=== PATIENT | female | born 1970 | race Caucasian/White ===

== ENCOUNTER 2021-10-07 15:18 | Inpatient (IN) | payer SELFPAY ==
[~2021-10-07] VITALS: Ht 170.2 cm; Wt 73.1 kg
[2021-10-07] MEDS ORDERED: FENTANYL CITRATE/PF 100MCG/2 ML INJ IV NR (15:45)
[2021-10-07] MEDS ORDERED: SODIUM CHLORIDE 0.9% 1000ML 1,000 ML IV ONE ×3 (15:45→17:30)
[2021-10-07 15:55] LABS: BASOPHILS % 0.5 % (0.0-1.0); EOSINOPHILS # (AUTO) 0.1 (0.0-0.4); EOSINOPHILS % 0.8 % (0.0-6.0); HEMATOCRIT 45.2 % (34.2-44.1); HEMOGLOBIN 14.6 g/dL (12.0-16.0); LYMPHOCYTES # (AUTO) 1.9 (1.0-3.2); LYMPHOCYTES % 30.7 % (18.0-39.1); MEAN CORPUSCULAR HEMOGLOBIN 32.6 pg (28-32); MEAN CORPUSCULAR HGB CONC 32.3 g/dL (31-35); MEAN CORPUSCULAR VOLUME 100.9 fL (81-99); MONOCYTES # (AUTO) 0.4 (0.2-0.8); MONOCYTES % 5.9 % (4.4-11.3); NEUTROPHILS # (AUTO) 3.9 (2.1-6.9); NEUTROPHILS % 61.9 % (38.7-80.0); PLATELET COUNT 137 x10e3/uL (140-360); RED BLOOD COUNT 4.48 x10e6/uL (3.6-5.1); RED CELL DISTRIBUTION WIDTH 12.8 % (11.7-14.4)
[2021-10-07 16:16] LABS: ALANINE AMINOTRANSFERASE 22 IU/L (0-55); ALBUMIN 3.6 g/dL (3.5-5.0); ALBUMIN/GLOBULIN RATIO 0.9 (0.8-2.0); ALKALINE PHOSPHATASE 108 IU/L (40-150); ANION GAP 20.6 mmol/L (8-16); BLOOD UREA NITROGEN < 5 mg/dL (7-26); CALCIUM 8.7 mg/dL (8.4-10.2); CARBON DIOXIDE 20 mmol/L (22-29); CHLORIDE 97 mmol/L (98-107); CREATININE, SERUM 0.69 mg/dL (0.57-1.11); EST GLOMERULAR FILTRATION RATE 90 ML/MIN (60-); GLUCOSE 181 mg/dL (74-118); POTASSIUM 3.6 mmol/L (3.5-5.1); SODIUM 134 mmol/L (136-145)
[2021-10-07 16:19] LABS: BUN/CREATININE RATIO 7 (6-25)
[2021-10-07] MEDS ORDERED: SODIUM CHLORIDE 0.9% 1000ML 1,000 ML ONE (17:01)
[2021-10-07] MEDS ORDERED: IOPAMIDOL 370 MG/ML 200 ML INFUS..BTL INJ ONE (17:03)
[2021-10-07] MEDS ORDERED: SODIUM CHLORIDE 0.9% 50ML 50 ML ONE (17:03)
[2021-10-07] MEDS ORDERED: LORAZEPAM INJ 2 MG/ML VIAL IV ONE (18:15)
[2021-10-07] MEDS ORDERED: INSULIN REGULAR, HUMAN 100 UNIT/1 ML SQ ONE (18:15)
[2021-10-07] MEDS ORDERED: LORAZEPAM INJ 2 MG/ML VIAL IV PRN (18:15)
[2021-10-07] MEDS: PIPERACILLIN/TAZOBACTAM 3.375 GM in SODIUM CHLORIDE 0.9% 50ML 50 ML IV SCH (18:52)
[2021-10-07 19:03] LABS: CLARITY,URINE HAZY (CLEAR); COLOR,URINE YELLOW (YELLOW); KETONES,URINE 2+ (NEGATIVE); LEUKOCYTE ESTERASE ,URINE NEGATIVE (NEGATIVE); NITRITE,URINE NEGATIVE (NEGATIVE); PROTEIN,URINE DIPSTICK NEGATIVE (NEGATIVE); URINE UROBILINOGEN 0.2 mg/dL (0.2 - 1)
[2021-10-07 19:06] LABS: BACTERIA,URINE MODERATE /HPF; EPITHELIAL CELLS,URINE MODERATE /LPF
[2021-10-07 19:07] LABS: AMORPHOUS SEDIMENT,URINE FEW (FEW)
[2021-10-07] MEDS: ONDANSETRON HCL INJ 2MG/ML 2ML 2 MG/ML VIAL IV PRN (19:17)
[2021-10-07] MEDS: SODIUM CHLORIDE 0.9% 1000ML 1,000 ML IV SCH (19:24)
[2021-10-07 20:48] LABS: ABG PCO2 29 mmHg (35-45); ABG PH 7.44 (7.35-7.45); ABG PO2 44 mmHg (80-105)
[2021-10-07 20:49] LABS: ABG HCO3 20 mmol/L (22-26); ABG TCO2 20
[2021-10-07] MEDS ORDERED: MAGNESIUM/ALUMINUM/SIMETHICONE 30 ML UDC PO PRN (21:45)
[2021-10-07] MEDS ORDERED: HYDRALAZINE HCL 20 MG/ML VIAL IV PRN (22:00)
[2021-10-07] MEDS ORDERED: ACETAMINOPHEN 325 MG TAB PO PRN (22:00)
[2021-10-07 22:35] LABS: AMPHETAMINES SCREEN,URINE NEGATIVE (NEGATIVE); BENZODIAZEPINES SCREEN,URINE NEGATIVE (NEGATIVE); PHENCYCLIDINE SCREEN,URINE NEGATIVE (NEGATIVE)
[2021-10-07 23:37] LABS: SALICYLATE < 5.0 mg/dL (0-30)
[2021-10-07 23:43] VITALS: BP 130/81
[2021-10-07 23:45] VITALS: BP 118/79
[2021-10-07 23:47] LABS: CREATINE KINASE MB 0.1 ng/mL (0-5.0)
[2021-10-07 23:55] LABS: HIV 1&2 AB SCREEN NON-REACTIVE (NONREACTIVE)
[2021-10-08] VITALS (26 sets, daily range): BP systolic 106–135; BP diastolic 56–79
[2021-10-08 00:58] LABS: TRIGLYCERIDES 108 MG/DL (0-149)
[2021-10-08] MEDS: CHLORDIAZEPOXIDE HCL 25 MG CAP PO SCH ×2 (00:59)
[2021-10-08] MEDS ORDERED: HYDRALAZINE HCL 20 MG/ML VIAL IV PRN (01:15)
[2021-10-08] MEDS ORDERED: MELATONIN 5 MG TABLET PO PRN (01:15)
[2021-10-08] MEDS ORDERED: DOCUSATE SODIUM 100 MG CAP PO PRN (01:15)
[2021-10-08] MEDS ORDERED: SIMETHICONE 80 MG CHEW PO PRN (01:15)
[2021-10-08] MEDS ORDERED: TRAMADOL HCL 50 MG TAB PO PRN (01:15)
[2021-10-08] MEDS ORDERED: LIDOCAINE 4% PATCH TP PRN (01:15)
[2021-10-08] MEDS ORDERED: DEXTROSE 50% SYRINGE 50 ML IV PRN (01:15)
[2021-10-08] MEDS ORDERED: DIPHENHYDRAMINE HCL 25 MG CAP PO PRN (01:15)
[2021-10-08] MEDS ORDERED: BENZONATATE 100 MG CAP PO PRN (01:15)
[2021-10-08] MEDS ORDERED: POTASSIUM CHLORIDE 20 MEQ TAB CR PO PRN (01:15)
[2021-10-08] MEDS ORDERED: ALBUTEROL/IPRATROPIUM 3 ML NEB NEB PRN (01:15)
[2021-10-08 01:25] LABS: THYROID STIMULATING HORMONE 1.569 uIU/mL (0.350-4.940)
[2021-10-08] MEDS: PIPERACILLIN/TAZOBACTAM 3.375 GM in SODIUM CHLORIDE 0.9% 50ML 50 ML IV SCH ×3 (02:22→17:36)
[2021-10-08] MEDS: SODIUM CHLORIDE 0.9% 1000ML 1,000 ML IV SCH (03:19)
[2021-10-08 05:46] LABS: ALANINE AMINOTRANSFERASE 15 IU/L (0-55); ALBUMIN 2.8 g/dL (3.5-5.0); ALKALINE PHOSPHATASE 67 IU/L (40-150); AMYLASE 34 U/L (25-125); ANION GAP 13.3 mmol/L (8-16); CALCIUM 7.5 mg/dL (8.4-10.2); CARBON DIOXIDE 21 mmol/L (22-29); CHLORIDE 105 mmol/L (98-107); CREATININE, SERUM 0.58 mg/dL (0.57-1.11); EST GLOMERULAR FILTRATION RATE 110 ML/MIN (60-); GLUCOSE 144 mg/dL (74-118); LIPASE 19 U/L (8-78); POTASSIUM 3.3 mmol/L (3.5-5.1); SODIUM 136 mmol/L (136-145)
[2021-10-08 05:48] LABS: BASOPHILS # (AUTO) 0.1 (0.0-0.1); BASOPHILS % 0.7 % (0.0-1.0); HEMATOCRIT 36.4 % (34.2-44.1); LYMPHOCYTES # (AUTO) 1.5 (1.0-3.2); LYMPHOCYTES % 19.8 % (18.0-39.1); MEAN CORPUSCULAR HEMOGLOBIN 32.8 pg (28-32); MEAN CORPUSCULAR HGB CONC 32.1 g/dL (31-35); MONOCYTES # (AUTO) 0.8 (0.2-0.8); MONOCYTES % 9.9 % (4.4-11.3); NEUTROPHILS # (AUTO) 5.2 (2.1-6.9); NEUTROPHILS % 69.3 % (38.7-80.0); RED BLOOD COUNT 3.57 x10e6/uL (3.6-5.1); RED CELL DISTRIBUTION WIDTH 13.2 % (11.7-14.4)
[2021-10-08 05:50] LABS: BLOOD UREA NITROGEN < 5 mg/dL (7-26); BUN/CREATININE RATIO 9 (6-25)
[2021-10-08 05:52] LABS: HEMOGLOBIN 11.7 g/dL (12.0-16.0); PLATELET COUNT 87 x10e3/uL (140-360)
[2021-10-08 06:06] LABS: CREATINE KINASE MB 0.1 ng/mL (0-5.0)
[2021-10-08 06:20] LABS: MAGNESIUM 1.4 MG/DL (1.3-2.1); PHOSPHORUS 3.1 MG/DL (2.3-4.7)
[2021-10-08 06:40] LABS: THYROID STIMULATING HORMONE 2.54 uIU/mL (0.350-4.940)
[2021-10-08] MEDS: ONDANSETRON HCL INJ 2MG/ML 2ML 2 MG/ML VIAL IV PRN ×4 (07:22→22:35)
[2021-10-08] MEDS: Morphine 4mg Syringe 4 MG/ML INJ IV PRN ×4 (07:22→22:38)
[2021-10-08] MEDS ORDERED: PANTOPRAZOLE SOD 40 MG TABEC PO SCH (07:30)
[2021-10-08] MEDS: MULTIVITAMINS/MINERALS TAB PO SCH ×2 (09:00→10:24)
[2021-10-08] MEDS ORDERED: LACTATED RINGER'S 1,000 ML INJ SCH (09:45)
[2021-10-08] MEDS: THIAMINE HCL INJ 100 MG in SODIUM CHLORIDE 0.9% 50ML 50 ML IV ONE ×2 (10:24→13:13)
[2021-10-08] MEDS ORDERED: THIAMINE HCL INJ 100 MG in SODIUM CHLORIDE 0.9% 50ML 50 ML IV ONE (10:30)
[2021-10-08 15:06] LABS: HEMATOCRIT 35.7 % (34.2-44.1); HEMOGLOBIN 11.6 g/dL (12.0-16.0)
[2021-10-08] MEDS: MULTIVITAMINS- 12 INJECTION 10 ML, FOLIC ACID MDV 1 MG, THIAMINE HCL INJ 100 MG in SODI... IV SCH (15:30)
[2021-10-08] MEDS: ACETAMINOPHEN 325 MG TAB PO PRN (16:33)
[2021-10-08] MEDS: LORAZEPAM INJ 2 MG/ML VIAL IV PRN (17:57)
[2021-10-08] MEDS ORDERED: POTASSIUM CHLORIDE 20MEQ/15ML UDC NG PRN (18:30)
[2021-10-09] VITALS (15 sets, daily range): BP systolic 115–141; BP diastolic 71–92
[2021-10-09] MEDS: LORAZEPAM INJ 2 MG/ML VIAL IV PRN ×2 (01:15→18:33)
[2021-10-09] MEDS: PIPERACILLIN/TAZOBACTAM 3.375 GM in SODIUM CHLORIDE 0.9% 50ML 50 ML IV SCH ×3 (01:30→17:28)
[2021-10-09] MEDS: MULTIVITAMINS- 12 INJECTION 10 ML, FOLIC ACID MDV 1 MG, THIAMINE HCL INJ 100 MG in SODI... IV SCH ×3 (02:15→21:17)
[2021-10-09] MEDS: ACETAMINOPHEN 325 MG TAB PO PRN ×2 (04:35→22:41)
[2021-10-09 05:22] LABS: BASOPHILS # (AUTO) 0.1 (0.0-0.1); BASOPHILS % 0.6 % (0.0-1.0); EOSINOPHILS % 0.5 % (0.0-6.0); HEMATOCRIT 33.9 % (34.2-44.1); HEMOGLOBIN 11.3 g/dL (12.0-16.0); LYMPHOCYTES # (AUTO) 1.4 (1.0-3.2); LYMPHOCYTES % 16.7 % (18.0-39.1); MEAN CORPUSCULAR HEMOGLOBIN 33.1 pg (28-32); MEAN CORPUSCULAR HGB CONC 33.3 g/dL (31-35); MEAN CORPUSCULAR VOLUME 99.4 fL (81-99); MONOCYTES # (AUTO) 0.9 (0.2-0.8); MONOCYTES % 11.5 % (4.4-11.3); NEUTROPHILS # (AUTO) 5.7 (2.1-6.9); NEUTROPHILS % 70.2 % (38.7-80.0); PLATELET COUNT 84 x10e3/uL (140-360); RED BLOOD COUNT 3.41 x10e6/uL (3.6-5.1); RED CELL DISTRIBUTION WIDTH 13.2 % (11.7-14.4)
[2021-10-09 05:57] LABS: ALBUMIN 2.6 g/dL (3.5-5.0); ALBUMIN/GLOBULIN RATIO 0.8 (0.8-2.0); ANION GAP 13.2 mmol/L (8-16); CALCIUM 7.7 mg/dL (8.4-10.2); CREATININE, SERUM 0.58 mg/dL (0.57-1.11); POTASSIUM 3.2 mmol/L (3.5-5.1)
[2021-10-09 06:30] LABS: MAGNESIUM 1.6 MG/DL (1.3-2.1); PHOSPHORUS 2.1 MG/DL (2.3-4.7)
[2021-10-09] MEDS: POTASSIUM CHLORIDE 10MEQ EA PO PRN (06:54)
[2021-10-09] MEDS: CHLORDIAZEPOXIDE HCL 25 MG CAP PO PRN ×2 (08:53→22:40)
[2021-10-09] MEDS: Morphine 4mg Syringe 4 MG/ML INJ IV PRN ×2 (12:51→18:34)
[2021-10-09] MEDS: ONDANSETRON HCL INJ 2MG/ML 2ML 2 MG/ML VIAL IV PRN ×2 (12:51→18:33)
[2021-10-10] VITALS (8 sets, daily range): BP systolic 111–130; BP diastolic 72–87
[2021-10-10] MEDS: PIPERACILLIN/TAZOBACTAM 3.375 GM in SODIUM CHLORIDE 0.9% 50ML 50 ML IV SCH ×2 (02:25→09:50)
[2021-10-10 06:12] LABS: BASOPHILS % 0.3 % (0.0-1.0); EOSINOPHILS # (AUTO) 0.1 (0.0-0.4); EOSINOPHILS % 1.4 % (0.0-6.0); HEMATOCRIT 32.2 % (34.2-44.1); HEMOGLOBIN 10.7 g/dL (12.0-16.0); LYMPHOCYTES # (AUTO) 1.1 (1.0-3.2); LYMPHOCYTES % 17.5 % (18.0-39.1); MEAN CORPUSCULAR HEMOGLOBIN 32.6 pg (28-32); MEAN CORPUSCULAR HGB CONC 33.2 g/dL (31-35); MEAN CORPUSCULAR VOLUME 98.2 fL (81-99); MONOCYTES % 14.8 % (4.4-11.3); NEUTROPHILS # (AUTO) 4.2 (2.1-6.9); NEUTROPHILS % 65.4 % (38.7-80.0); PLATELET COUNT 90 x10e3/uL (140-360); RED BLOOD COUNT 3.28 x10e6/uL (3.6-5.1); RED CELL DISTRIBUTION WIDTH 12.9 % (11.7-14.4)
[2021-10-10] MEDS: MULTIVITAMINS- 12 INJECTION 10 ML, FOLIC ACID MDV 1 MG, THIAMINE HCL INJ 100 MG in SODI... IV SCH ×2 (06:28→16:38)
[2021-10-10 06:32] LABS: ALBUMIN 2.2 g/dL (3.5-5.0); ALBUMIN/GLOBULIN RATIO 0.7 (0.8-2.0); ANION GAP 13.3 mmol/L (8-16); CALCIUM 8.3 mg/dL (8.4-10.2); CREATININE, SERUM 0.51 mg/dL (0.57-1.11); POTASSIUM 3.3 mmol/L (3.5-5.1)
[2021-10-10] MEDS: Morphine 4mg Syringe 4 MG/ML INJ IV PRN (08:40)
[2021-10-10] MEDS: ONDANSETRON HCL INJ 2MG/ML 2ML 2 MG/ML VIAL IV PRN ×2 (08:40→17:45)
[2021-10-10] MEDS: ACETAMINOPHEN 325 MG TAB PO PRN ×2 (12:00→20:29)
[2021-10-10] MEDS: PHOSPHORUS 250 MG TAB PO SCH (12:52)
[2021-10-10] MEDS: METOPROLOL TARTRATE 25 MG TAB PO SCH ×2 (12:52→23:04)
[2021-10-10] MEDS ORDERED: CEFEPIME 1 GM in SODIUM CHLORIDE 0.9% 50ML 50 ML IV SCH (14:00)
[2021-10-10 16:49] LABS: CLARITY,URINE CLEAR (CLEAR); COLOR,URINE YELLOW (YELLOW); KETONES,URINE 2+ (NEGATIVE); LEUKOCYTE ESTERASE ,URINE NEGATIVE (NEGATIVE); NITRITE,URINE NEGATIVE (NEGATIVE); PROTEIN,URINE DIPSTICK NEGATIVE (NEGATIVE)
[2021-10-10 16:50] LABS: EPITHELIAL CELLS,URINE FEW /LPF; URINE UROBILINOGEN >=8 mg/dL (0.2 - 1); WBC,URINE (MAN) 0-5 /HPF (0-5)
[2021-10-10] MEDS: Morphine 2mg Syringe 2 MG/ML SYR IV PRN (17:45)
[2021-10-10] MEDS: CHLORDIAZEPOXIDE HCL 25 MG CAP PO PRN (20:29)
[2021-10-11] VITALS (7 sets, daily range): BP systolic 122–137; BP diastolic 78–88
[2021-10-11] MEDS: MULTIVITAMINS- 12 INJECTION 10 ML, FOLIC ACID MDV 1 MG, THIAMINE HCL INJ 100 MG in SODI... IV SCH ×3 (02:33→22:25)
[2021-10-11 06:10] LABS: BASOPHILS % 0.5 % (0.0-1.0); EOSINOPHILS # (AUTO) 0.1 (0.0-0.4); HEMOGLOBIN 10.8 g/dL (12.0-16.0); LYMPHOCYTES # (AUTO) 1.3 (1.0-3.2); LYMPHOCYTES % 20.9 % (18.0-39.1); MEAN CORPUSCULAR HEMOGLOBIN 32.3 pg (28-32); MEAN CORPUSCULAR HGB CONC 32.7 g/dL (31-35); MEAN CORPUSCULAR VOLUME 98.8 fL (81-99); MONOCYTES # (AUTO) 0.9 (0.2-0.8); MONOCYTES % 14.9 % (4.4-11.3); NEUTROPHILS # (AUTO) 3.7 (2.1-6.9); NEUTROPHILS % 61.2 % (38.7-80.0); PLATELET COUNT 113 x10e3/uL (140-360); RED BLOOD COUNT 3.34 x10e6/uL (3.6-5.1)
[2021-10-11 06:40] LABS: ALANINE AMINOTRANSFERASE 28 IU/L (0-55); ALBUMIN 2.2 g/dL (3.5-5.0); ALBUMIN/GLOBULIN RATIO 0.7 (0.8-2.0); ALKALINE PHOSPHATASE 83 IU/L (40-150); ANION GAP 10.9 mmol/L (8-16); BLOOD UREA NITROGEN < 5 mg/dL (7-26); CALCIUM 7.6 mg/dL (8.4-10.2); CARBON DIOXIDE 21 mmol/L (22-29); CHLORIDE 105 mmol/L (98-107); CREATININE, SERUM 0.48 mg/dL (0.57-1.11); EST GLOMERULAR FILTRATION RATE 136 ML/MIN (60-); GLUCOSE 110 mg/dL (74-118); MAGNESIUM 1.7 MG/DL (1.3-2.1); PHOSPHORUS 2.7 MG/DL (2.3-4.7); SODIUM 134 mmol/L (136-145)
[2021-10-11 06:48] LABS: BUN/CREATININE RATIO 10 (6-25)
[2021-10-11 06:49] LABS: POTASSIUM 2.9 mmol/L (3.5-5.1)
[2021-10-11] MEDS: PHOSPHORUS 250 MG TAB PO SCH (09:38)
[2021-10-11] MEDS: METOPROLOL TARTRATE 25 MG TAB PO SCH ×2 (09:38→22:25)
[2021-10-11] MEDS: Morphine 2mg Syringe 2 MG/ML SYR IV PRN ×4 (09:48→22:26)
[2021-10-11 13:21] LABS: INR 1.24; PROTHROMBIN TIME 16.6 seconds (11.9-14.5)
[2021-10-11] MEDS ORDERED: POTASSIUM CHLORIDE 20 MEQ TAB CR PO ONE (14:15)
[2021-10-11] MEDS ORDERED: ALBUMIN 25% 12.5GM 50ML 0 ML IV ONE (15:04)
[2021-10-11] MEDS: CEFTRIAXONE 1 GM in SODIUM CHLORIDE 0.9% 50ML 50 ML IV SCH (16:09)
[2021-10-12] VITALS: BP 121/77
[2021-10-12] MEDS: Morphine 2mg Syringe 2 MG/ML SYR IV PRN ×3 (02:14→11:30)
[2021-10-12 02:46] LABS: BODY FLUID APPEARANCE CLOUDY; BODY FLUID COLOR YELLOW; BODY FLUID TYPE PERITONEAL; RBC,BODY FLUID 400 cells/uL; WBC,BODY FLUID 10316 cells/uL
[2021-10-12 03:05] LABS: LYMPHOCYTES,BODY FLUID 13 %; MONO/MACROPHG,BODY FLUID 10 %; NEUTROPHILS,BODY FLUID 77 %
[2021-10-12 04:00] VITALS: BP 125/75
[2021-10-12 06:05] LABS: BASOPHILS # (AUTO) 0.1 (0.0-0.1); BASOPHILS % 0.8 % (0.0-1.0); EOSINOPHILS # (AUTO) 0.1 (0.0-0.4); EOSINOPHILS % 0.8 % (0.0-6.0); HEMATOCRIT 38.8 % (34.2-44.1); HEMOGLOBIN 12.1 g/dL (12.0-16.0); LYMPHOCYTES # (AUTO) 1.8 (1.0-3.2); LYMPHOCYTES % 17.3 % (18.0-39.1); MEAN CORPUSCULAR HEMOGLOBIN 32.4 pg (28-32); MEAN CORPUSCULAR HGB CONC 31.2 g/dL (31-35); MONOCYTES # (AUTO) 1.2 (0.2-0.8); MONOCYTES % 11.3 % (4.4-11.3); NEUTROPHILS # (AUTO) 7.2 (2.1-6.9); NEUTROPHILS % 69.1 % (38.7-80.0); PLATELET COUNT 104 x10e3/uL (140-360); RED BLOOD COUNT 3.73 x10e6/uL (3.6-5.1); RED CELL DISTRIBUTION WIDTH 13.4 % (11.7-14.4)
[2021-10-12 06:54] LABS: ANION GAP 17.1 mmol/L (8-16); BLOOD UREA NITROGEN < 5 mg/dL (7-26); CALCIUM 8.1 mg/dL (8.4-10.2); CARBON DIOXIDE 18 mmol/L (22-29); CHLORIDE 103 mmol/L (98-107); CREATININE, SERUM 0.47 mg/dL (0.57-1.11); EST GLOMERULAR FILTRATION RATE 140 ML/MIN (60-); GLUCOSE 107 mg/dL (74-118); POTASSIUM 3.1 mmol/L (3.5-5.1); SODIUM 135 mmol/L (136-145)
[2021-10-12 06:57] LABS: BUN/CREATININE RATIO 11 (6-25)
[2021-10-12] MEDS: FUROSEMIDE 40 MG TAB PO SCH (09:15)
[2021-10-12] MEDS: SPIRONOLACTONE 25 MG TAB PO SCH (09:15)
[2021-10-12] MEDS: PHOSPHORUS 250 MG TAB PO SCH (09:15)
[2021-10-12] MEDS: MULTIVITAMINS- 12 INJECTION 10 ML, FOLIC ACID MDV 1 MG, THIAMINE HCL INJ 100 MG in SODI... IV SCH ×2 (09:16→20:12)
[2021-10-12] MEDS: METOPROLOL TARTRATE 25 MG TAB PO SCH ×2 (09:17→20:12)
[2021-10-12 12:32] VITALS: BP 118/76
[2021-10-12 15:48] VITALS: BP 123/82
[2021-10-12] MEDS: TRAMADOL HCL 50 MG TAB PO PRN (16:10)
[2021-10-12] MEDS: CEFTRIAXONE 1 GM in SODIUM CHLORIDE 0.9% 50ML 50 ML IV SCH (16:14)
[2021-10-12] MEDS: LORAZEPAM INJ 2 MG/ML VIAL IV PRN (16:14)
[2021-10-12 20:00] VITALS: BP 122/83
[2021-10-13] VITALS (8 sets, daily range): BP systolic 117–125; BP diastolic 74–84
[2021-10-13] MEDS: MULTIVITAMINS- 12 INJECTION 10 ML, FOLIC ACID MDV 1 MG, THIAMINE HCL INJ 100 MG in SODI... IV SCH ×2 (03:07→10:39)
[2021-10-13] MEDS: TRAMADOL HCL 50 MG TAB PO PRN ×5 (04:33→23:57)
[2021-10-13] MEDS: ONDANSETRON HCL INJ 2MG/ML 2ML 2 MG/ML VIAL IV PRN (05:00)
[2021-10-13] MEDS: PHOSPHORUS 250 MG TAB PO SCH (10:39)
[2021-10-13] MEDS: SPIRONOLACTONE 25 MG TAB PO SCH (10:39)
[2021-10-13] MEDS: FUROSEMIDE 40 MG TAB PO SCH (10:39)
[2021-10-13] MEDS: METOPROLOL TARTRATE 25 MG TAB PO SCH ×2 (10:40→20:55)
[2021-10-13] MEDS: CEFTRIAXONE 1 GM in SODIUM CHLORIDE 0.9% 50ML 50 ML IV SCH (15:47)
[2021-10-13] MEDS: LORAZEPAM INJ 2 MG/ML VIAL IV PRN (15:48)
[2021-10-14] VITALS (8 sets, daily range): BP systolic 113–123; BP diastolic 75–83
[2021-10-14] MEDS ORDERED: SPIRONOLACTONE 25 MG TAB PO STA (00:09)
[2021-10-14] MEDS ORDERED: FUROSEMIDE 40 MG TAB PO STA (00:09)
[2021-10-14] MEDS: FUROSEMIDE 40 MG TAB PO SCH ×2 (05:56→16:48)
[2021-10-14] MEDS: TRAMADOL HCL 50 MG TAB PO PRN ×3 (06:05→18:01)
[2021-10-14 07:00] LABS: ALANINE AMINOTRANSFERASE 36 IU/L (0-55); ALBUMIN/GLOBULIN RATIO 0.6 (0.8-2.0); ALKALINE PHOSPHATASE 112 IU/L (40-150); BLOOD UREA NITROGEN < 5 mg/dL (7-26); CALCIUM 7.5 mg/dL (8.4-10.2); CARBON DIOXIDE 24 mmol/L (22-29); CHLORIDE 98 mmol/L (98-107); CREATININE, SERUM 0.53 mg/dL (0.57-1.11); EST GLOMERULAR FILTRATION RATE 122 ML/MIN (60-); GLUCOSE 99 mg/dL (74-118); SODIUM 133 mmol/L (136-145)
[2021-10-14 07:02] LABS: BUN/CREATININE RATIO 9 (6-25)
[2021-10-14 07:58] LABS: BASOPHILS # (AUTO) 0.1 (0.0-0.1); BASOPHILS % 0.4 % (0.0-1.0); EOSINOPHILS # (AUTO) 0.1 (0.0-0.4); EOSINOPHILS % 1.3 % (0.0-6.0); HEMATOCRIT 35.2 % (34.2-44.1); LYMPHOCYTES # (AUTO) 2.4 (1.0-3.2); LYMPHOCYTES % 21.9 % (18.0-39.1); MEAN CORPUSCULAR HEMOGLOBIN 31.4 pg (28-32); MEAN CORPUSCULAR HGB CONC 32.1 g/dL (31-35); MEAN CORPUSCULAR VOLUME 97.8 fL (81-99); MONOCYTES # (AUTO) 0.9 (0.2-0.8); MONOCYTES % 8.3 % (4.4-11.3); NEUTROPHILS # (AUTO) 7.5 (2.1-6.9); NEUTROPHILS % 67.4 % (38.7-80.0); RED CELL DISTRIBUTION WIDTH 13.3 % (11.7-14.4)
[2021-10-14 08:02] LABS: HEMOGLOBIN 11.3 g/dL (12.0-16.0); PLATELET COUNT 220 x10e3/uL (140-360)
[2021-10-14] MEDS: POTASSIUM CHLORIDE 10MEQ EA PO PRN (09:16)
[2021-10-14] MEDS: SPIRONOLACTONE 25 MG TAB PO SCH ×2 (09:17→16:48)
[2021-10-14] MEDS: METOPROLOL TARTRATE 25 MG TAB PO SCH ×2 (09:17→20:33)
[2021-10-14] MEDS: MULTIVITAMINS/MINERALS TAB PO SCH (09:17)
[2021-10-14] MEDS: PHOSPHORUS 250 MG TAB PO SCH (09:17)
[2021-10-14] MEDS: THIAMINE HCL INJ 100 MG/ML 2ML VIAL IV SCH (09:18)
[2021-10-14 12:22] LABS: BAND NEUTROPHILS % (MANUAL) 1 %; EOSINOPHILS % (MANUAL) 1 % (0-7); LYMPHOCYTES % (MANUAL) 16 % (19-48); MONOCYTES % (MANUAL) 8 % (3.4-9.0); NEUTROPHILS % (MANUAL) 74 % (40-74); PLATELET ESTIMATE ADEQUATE; PLATELET MORPHOLOGY COMMENT NORMAL; RBC MORPHOLOGY COMMENT NORMAL
[2021-10-14] MEDS: CEFTRIAXONE 1 GM in SODIUM CHLORIDE 0.9% 50ML 50 ML IV SCH (16:48)
[2021-10-15] VITALS (8 sets, daily range): BP systolic 106–132; BP diastolic 71–89
[2021-10-15] MEDS: TRAMADOL HCL 50 MG TAB PO PRN ×3 (00:37→17:00)
[2021-10-15] MEDS ORDERED: POTASSIUM CHLORIDE 20 MEQ TAB CR PO STA (02:15)
[2021-10-15] MEDS ORDERED: POTASSIUM CHLORIDE 20 MEQ TAB CR PO ONE (03:30)
[2021-10-15] MEDS: DICYCLOMINE HCL 10 MG CAP PO SCH ×3 (05:32→16:59)
[2021-10-15] MEDS: FUROSEMIDE 40 MG TAB PO SCH ×2 (05:32→16:59)
[2021-10-15 05:38] LABS: BASOPHILS # (AUTO) 0.1 (0.0-0.1); BASOPHILS % 0.5 % (0.0-1.0); EOSINOPHILS # (AUTO) 0.1 (0.0-0.4); EOSINOPHILS % 1.2 % (0.0-6.0); HEMATOCRIT 33.3 % (34.2-44.1); HEMOGLOBIN 10.8 g/dL (12.0-16.0); LYMPHOCYTES # (AUTO) 2.2 (1.0-3.2); LYMPHOCYTES % 19.9 % (18.0-39.1); MEAN CORPUSCULAR HEMOGLOBIN 31.9 pg (28-32); MEAN CORPUSCULAR HGB CONC 32.4 g/dL (31-35); MEAN CORPUSCULAR VOLUME 98.2 fL (81-99); MONOCYTES # (AUTO) 0.8 (0.2-0.8); MONOCYTES % 7.5 % (4.4-11.3); NEUTROPHILS # (AUTO) 7.8 (2.1-6.9); NEUTROPHILS % 70.3 % (38.7-80.0); PLATELET COUNT 233 x10e3/uL (140-360); RED BLOOD COUNT 3.39 x10e6/uL (3.6-5.1); RED CELL DISTRIBUTION WIDTH 13.3 % (11.7-14.4)
[2021-10-15 06:00] LABS: ALANINE AMINOTRANSFERASE 36 IU/L (0-55); ALBUMIN/GLOBULIN RATIO 0.5 (0.8-2.0); ALKALINE PHOSPHATASE 119 IU/L (40-150); ANION GAP 14.4 mmol/L (8-16); BLOOD UREA NITROGEN < 5 mg/dL (7-26); CALCIUM 7.7 mg/dL (8.4-10.2); CARBON DIOXIDE 26 mmol/L (22-29); CHLORIDE 95 mmol/L (98-107); CREATININE, SERUM 0.51 mg/dL (0.57-1.11); EST GLOMERULAR FILTRATION RATE 127 ML/MIN (60-); GLUCOSE 95 mg/dL (74-118); POTASSIUM 3.4 mmol/L (3.5-5.1); SODIUM 132 mmol/L (136-145)
[2021-10-15 06:08] LABS: BUN/CREATININE RATIO 10 (6-25)
[2021-10-15] MEDS: ACETAMINOPHEN 325 MG TAB PO PRN (08:36)
[2021-10-15] MEDS: POTASSIUM CHLORIDE 10MEQ EA PO PRN (08:36)
[2021-10-15] MEDS: SPIRONOLACTONE 25 MG TAB PO SCH ×2 (08:37→16:59)
[2021-10-15] MEDS: MULTIVITAMINS/MINERALS TAB PO SCH (08:37)
[2021-10-15] MEDS: METOPROLOL TARTRATE 25 MG TAB PO SCH ×2 (08:37→21:00)
[2021-10-15] MEDS: THIAMINE HCL INJ 100 MG/ML 2ML VIAL IV SCH (10:27)
[2021-10-15] MEDS: CEFTRIAXONE 1 GM in SODIUM CHLORIDE 0.9% 50ML 50 ML IV SCH (16:57)
[2021-10-16] VITALS (8 sets, daily range): BP systolic 114–124; BP diastolic 71–89
[2021-10-16] MEDS: TRAMADOL HCL 50 MG TAB PO PRN ×3 (03:52→17:32)
[2021-10-16] MEDS ORDERED: POTASSIUM CHLORIDE 10MEQ EA PO STA (04:21)
[2021-10-16] MEDS: POTASSIUM CHLORIDE 10MEQ EA PO PRN (04:38)
[2021-10-16 06:04] LABS: BASOPHILS # (AUTO) 0.1 (0.0-0.1); BASOPHILS % 0.6 % (0.0-1.0); EOSINOPHILS # (AUTO) 0.1 (0.0-0.4); EOSINOPHILS % 1.1 % (0.0-6.0); HEMATOCRIT 34.4 % (34.2-44.1); HEMOGLOBIN 11.1 g/dL (12.0-16.0); LYMPHOCYTES # (AUTO) 1.9 (1.0-3.2); LYMPHOCYTES % 17.5 % (18.0-39.1); MEAN CORPUSCULAR HEMOGLOBIN 31.9 pg (28-32); MEAN CORPUSCULAR HGB CONC 32.3 g/dL (31-35); MEAN CORPUSCULAR VOLUME 98.9 fL (81-99); MONOCYTES # (AUTO) 0.8 (0.2-0.8); MONOCYTES % 7.6 % (4.4-11.3); NEUTROPHILS # (AUTO) 7.8 (2.1-6.9); NEUTROPHILS % 72.4 % (38.7-80.0); PLATELET COUNT 178 x10e3/uL (140-360); RED BLOOD COUNT 3.48 x10e6/uL (3.6-5.1); RED CELL DISTRIBUTION WIDTH 13.5 % (11.7-14.4)
[2021-10-16 06:22] LABS: ANION GAP 15.5 mmol/L (8-16); BLOOD UREA NITROGEN < 5 mg/dL (7-26); CALCIUM 7.7 mg/dL (8.4-10.2); CARBON DIOXIDE 22 mmol/L (22-29); CHLORIDE 97 mmol/L (98-107); CREATININE, SERUM 0.48 mg/dL (0.57-1.11); EST GLOMERULAR FILTRATION RATE 136 ML/MIN (60-); GLUCOSE 107 mg/dL (74-118); POTASSIUM 3.5 mmol/L (3.5-5.1); SODIUM 131 mmol/L (136-145)
[2021-10-16 06:23] LABS: BUN/CREATININE RATIO 10 (6-25)
[2021-10-16] MEDS: FUROSEMIDE 40 MG TAB PO SCH ×2 (07:18→17:31)
[2021-10-16] MEDS: DICYCLOMINE HCL 10 MG CAP PO SCH ×4 (07:18→17:31)
[2021-10-16] MEDS: SPIRONOLACTONE 25 MG TAB PO SCH ×2 (08:25→17:31)
[2021-10-16] MEDS: METOPROLOL TARTRATE 25 MG TAB PO SCH ×2 (08:25→21:12)
[2021-10-16] MEDS: MULTIVITAMINS/MINERALS TAB PO SCH (08:26)
[2021-10-16] MEDS: THIAMINE HCL INJ 100 MG/ML 2ML VIAL IV SCH (08:48)
[2021-10-16 12:22] LABS: BODY FLUID APPEARANCE SL.CLOUDY; BODY FLUID COLOR YELLOW; BODY FLUID TYPE PERITONEAL
[2021-10-16 12:23] LABS: RBC,BODY FLUID 2000 cells/uL; WBC,BODY FLUID 6968 cells/uL
[2021-10-16 12:51] LABS: LYMPHOCYTES,BODY FLUID 22 %; MONO/MACROPHG,BODY FLUID 14 %; NEUTROPHILS,BODY FLUID 64 %
[2021-10-16] MEDS ORDERED: SODIUM CHLORIDE 0.9% 50ML 50 ML ONE (17:22)
[2021-10-16] MEDS: CEFTRIAXONE 1 GM in SODIUM CHLORIDE 0.9% 50ML 50 ML IV SCH (17:31)
[2021-10-17] VITALS (9 sets, daily range): BP systolic 108–126; BP diastolic 76–88
[2021-10-17 05:20] LABS: BASOPHILS # (AUTO) 0.1 (0.0-0.1); BASOPHILS % 0.4 % (0.0-1.0); EOSINOPHILS # (AUTO) 0.2 (0.0-0.4); EOSINOPHILS % 1.3 % (0.0-6.0); HEMATOCRIT 32.3 % (34.2-44.1); HEMOGLOBIN 10.5 g/dL (12.0-16.0); LYMPHOCYTES # (AUTO) 2.2 (1.0-3.2); LYMPHOCYTES % 19.6 % (18.0-39.1); MEAN CORPUSCULAR HEMOGLOBIN 31.6 pg (28-32); MEAN CORPUSCULAR HGB CONC 32.5 g/dL (31-35); MEAN CORPUSCULAR VOLUME 97.3 fL (81-99); MONOCYTES # (AUTO) 0.9 (0.2-0.8); MONOCYTES % 7.5 % (4.4-11.3); NEUTROPHILS % 70.6 % (38.7-80.0); PLATELET COUNT 297 x10e3/uL (140-360); RED BLOOD COUNT 3.32 x10e6/uL (3.6-5.1); RED CELL DISTRIBUTION WIDTH 13.6 % (11.7-14.4)
[2021-10-17] MEDS: DICYCLOMINE HCL 10 MG CAP PO SCH ×4 (05:37→18:03)
[2021-10-17] MEDS: FUROSEMIDE 40 MG TAB PO SCH ×2 (05:37→18:03)
[2021-10-17 05:55] LABS: ALANINE AMINOTRANSFERASE 31 IU/L (0-55); ALBUMIN 1.9 g/dL (3.5-5.0); ALBUMIN/GLOBULIN RATIO 0.5 (0.8-2.0); ALKALINE PHOSPHATASE 119 IU/L (40-150); ANION GAP 13.3 mmol/L (8-16); BLOOD UREA NITROGEN < 5 mg/dL (7-26); CALCIUM 7.7 mg/dL (8.4-10.2); CARBON DIOXIDE 26 mmol/L (22-29); CHLORIDE 97 mmol/L (98-107); CREATININE, SERUM 0.46 mg/dL (0.57-1.11); EST GLOMERULAR FILTRATION RATE 143 ML/MIN (60-); GLUCOSE 101 mg/dL (74-118); POTASSIUM 3.3 mmol/L (3.5-5.1); SODIUM 133 mmol/L (136-145)
[2021-10-17 06:00] LABS: BUN/CREATININE RATIO 11 (6-25)
[2021-10-17] MEDS: TRAMADOL HCL 50 MG TAB PO PRN ×5 (06:00→18:04)
[2021-10-17] MEDS: MULTIVITAMINS/MINERALS TAB PO SCH (08:23)
[2021-10-17] MEDS: SPIRONOLACTONE 25 MG TAB PO SCH ×2 (08:23→18:03)
[2021-10-17] MEDS: POTASSIUM CHLORIDE 10MEQ EA PO PRN (08:24)
[2021-10-17] MEDS: METOPROLOL TARTRATE 25 MG TAB PO SCH ×2 (08:24→20:20)
[2021-10-17] MEDS: THIAMINE HCL INJ 100 MG/ML 2ML VIAL IV SCH (08:24)
[2021-10-17] MEDS: PIPERACILLIN/TAZOBACTAM 3.375 GM in SODIUM CHLORIDE 0.9% 50ML 50 ML IV SCH (18:03)
[2021-10-17] MEDS ORDERED: ONDANSETRON HCL 4 MG ORAL DISINTEGRATING TAB SL PRN (19:00)
[2021-10-18] VITALS (7 sets, daily range): BP systolic 108–123; BP diastolic 72–82
[2021-10-18] MEDS: PIPERACILLIN/TAZOBACTAM 3.375 GM in SODIUM CHLORIDE 0.9% 50ML 50 ML IV SCH ×4 (00:05→17:47)
[2021-10-18] MEDS: TRAMADOL HCL 50 MG TAB PO PRN ×4 (00:05→18:42)
[2021-10-18] MEDS: DICYCLOMINE HCL 10 MG CAP PO SCH ×4 (00:05→17:47)
[2021-10-18] MEDS ORDERED: SODIUM CHLORIDE 0.9% 250ML 250 ML ONE (00:10)
[2021-10-18] MEDS ORDERED: POTASSIUM CHLORIDE 20 MEQ TAB CR PO STA (00:44)
[2021-10-18] MEDS ORDERED: POTASSIUM CHLORIDE 20 MEQ TAB CR PO ONE (02:00)
[2021-10-18] MEDS ORDERED: SODIUM CHLORIDE 0.9% 50ML 50 ML ONE (04:49)
[2021-10-18] MEDS ORDERED: IOPAMIDOL 370 MG/ML 200 ML INFUS..BTL INJ ONE (04:49)
[2021-10-18 05:37] LABS: BASOPHILS % 0.4 % (0.0-1.0); EOSINOPHILS # (AUTO) 0.1 (0.0-0.4); EOSINOPHILS % 0.9 % (0.0-6.0); HEMATOCRIT 35.9 % (34.2-44.1); HEMOGLOBIN 11.3 g/dL (12.0-16.0); LYMPHOCYTES # (AUTO) 2.1 (1.0-3.2); LYMPHOCYTES % 18.3 % (18.0-39.1); MEAN CORPUSCULAR HEMOGLOBIN 31.1 pg (28-32); MEAN CORPUSCULAR HGB CONC 31.5 g/dL (31-35); MEAN CORPUSCULAR VOLUME 98.9 fL (81-99); MONOCYTES # (AUTO) 0.9 (0.2-0.8); MONOCYTES % 7.9 % (4.4-11.3); NEUTROPHILS # (AUTO) 8.2 (2.1-6.9); NEUTROPHILS % 72.1 % (38.7-80.0); PLATELET COUNT 379 x10e3/uL (140-360); RED BLOOD COUNT 3.63 x10e6/uL (3.6-5.1); RED CELL DISTRIBUTION WIDTH 13.8 % (11.7-14.4)
[2021-10-18 05:50] LABS: ALANINE AMINOTRANSFERASE 35 IU/L (0-55); ALBUMIN 2.1 g/dL (3.5-5.0); ALBUMIN/GLOBULIN RATIO 0.5 (0.8-2.0); ALKALINE PHOSPHATASE 127 IU/L (40-150); BLOOD UREA NITROGEN < 5 mg/dL (7-26); CALCIUM 8.1 mg/dL (8.4-10.2); CARBON DIOXIDE 26 mmol/L (22-29); CHLORIDE 93 mmol/L (98-107); EST GLOMERULAR FILTRATION RATE 130 ML/MIN (60-); GLUCOSE 97 mg/dL (74-118); SODIUM 131 mmol/L (136-145)
[2021-10-18] MEDS: FUROSEMIDE 40 MG TAB PO SCH ×2 (05:55→17:47)
[2021-10-18 05:59] LABS: BUN/CREATININE RATIO 10 (6-25)
[2021-10-18] MEDS: THIAMINE HCL INJ 100 MG/ML 2ML VIAL IV SCH (09:12)
[2021-10-18] MEDS: SPIRONOLACTONE 25 MG TAB PO SCH ×2 (09:12→17:44)
[2021-10-18] MEDS: METOPROLOL TARTRATE 25 MG TAB PO SCH ×2 (09:13→21:30)
[2021-10-18] MEDS: MULTIVITAMINS/MINERALS TAB PO SCH (09:13)
[2021-10-18] MEDS ORDERED: MAGNESIUM HYDROXIDE 30 ML UDC PO ONE (17:00)
[2021-10-18] MEDS: ENOXAPARIN SOD INJ 40 MG/0.4 ML SYR SC SCH (18:29)
[2021-10-18] MEDS: ACETAMINOPHEN 325 MG TAB PO PRN (21:45)
[2021-10-19] VITALS (8 sets, daily range): BP systolic 109–125; BP diastolic 69–75
[2021-10-19] MEDS: DICYCLOMINE HCL 10 MG CAP PO SCH ×4 (00:30→17:31)
[2021-10-19] MEDS: PIPERACILLIN/TAZOBACTAM 3.375 GM in SODIUM CHLORIDE 0.9% 50ML 50 ML IV SCH ×5 (00:55→23:50)
[2021-10-19 05:59] LABS: BASOPHILS % 0.3 % (0.0-1.0); EOSINOPHILS # (AUTO) 0.1 (0.0-0.4); EOSINOPHILS % 1.2 % (0.0-6.0); HEMATOCRIT 30.9 % (34.2-44.1); HEMOGLOBIN 10.1 g/dL (12.0-16.0); LYMPHOCYTES # (AUTO) 1.5 (1.0-3.2); LYMPHOCYTES % 12.5 % (18.0-39.1); MEAN CORPUSCULAR HEMOGLOBIN 31.3 pg (28-32); MEAN CORPUSCULAR HGB CONC 32.7 g/dL (31-35); MEAN CORPUSCULAR VOLUME 95.7 fL (81-99); MONOCYTES % 8.5 % (4.4-11.3); NEUTROPHILS # (AUTO) 9.2 (2.1-6.9); NEUTROPHILS % 76.8 % (38.7-80.0); PLATELET COUNT 319 x10e3/uL (140-360); RED BLOOD COUNT 3.23 x10e6/uL (3.6-5.1); RED CELL DISTRIBUTION WIDTH 13.7 % (11.7-14.4)
[2021-10-19] MEDS: FUROSEMIDE 40 MG TAB PO SCH ×2 (06:10→17:31)
[2021-10-19 06:29] LABS: ANION GAP 16.6 mmol/L (8-16); BLOOD UREA NITROGEN < 5 mg/dL (7-26); CARBON DIOXIDE 24 mmol/L (22-29); CHLORIDE 94 mmol/L (98-107); CREATININE, SERUM 0.49 mg/dL (0.57-1.11); EST GLOMERULAR FILTRATION RATE 133 ML/MIN (60-); GLUCOSE 99 mg/dL (74-118); POTASSIUM 3.6 mmol/L (3.5-5.1); SODIUM 131 mmol/L (136-145)
[2021-10-19 06:33] LABS: BUN/CREATININE RATIO 10 (6-25)
[2021-10-19] MEDS: SPIRONOLACTONE 25 MG TAB PO SCH ×2 (09:35→17:31)
[2021-10-19] MEDS: METOPROLOL TARTRATE 25 MG TAB PO SCH ×2 (09:35→21:50)
[2021-10-19] MEDS: THIAMINE HCL INJ 100 MG/ML 2ML VIAL IV SCH (09:35)
[2021-10-19] MEDS: MULTIVITAMINS/MINERALS TAB PO SCH (09:36)
[2021-10-19] MEDS ORDERED: CITRATE OF MAGNESIA 300ML BOTTLE PO ONE (10:00)
[2021-10-19] MEDS: TRAMADOL HCL 50 MG TAB PO PRN ×3 (10:07→23:59)
[2021-10-19] MEDS: METRONIDAZOLE 500 MG TAB PO SCH ×3 (13:27→23:50)
[2021-10-19] MEDS: NEOMYCIN SULFATE 500 MG TAB PO SCH ×3 (13:28→23:50)
[2021-10-19] MEDS: ENOXAPARIN SOD INJ 40 MG/0.4 ML SYR SC SCH (17:31)
[2021-10-19] MEDS: ACETAMINOPHEN 325 MG TAB PO PRN (21:50)
[2021-10-20] VITALS (8 sets, daily range): BP systolic 105–126; BP diastolic 70–88
[2021-10-20] MEDS: DICYCLOMINE HCL 10 MG CAP PO SCH ×4 (00:54→16:24)
[2021-10-20] MEDS: FUROSEMIDE 40 MG TAB PO SCH ×2 (06:00→16:24)
[2021-10-20] MEDS: PIPERACILLIN/TAZOBACTAM 3.375 GM in SODIUM CHLORIDE 0.9% 50ML 50 ML IV SCH ×3 (06:46→16:23)
[2021-10-20] MEDS: THIAMINE HCL INJ 100 MG/ML 2ML VIAL IV SCH (08:33)
[2021-10-20] MEDS: SPIRONOLACTONE 25 MG TAB PO SCH ×2 (08:33→16:23)
[2021-10-20] MEDS: METOPROLOL TARTRATE 25 MG TAB PO SCH ×3 (08:34→21:10)
[2021-10-20] MEDS: MULTIVITAMINS/MINERALS TAB PO SCH (09:00)
[2021-10-20] MEDS ORDERED: HYDROMORPHONE 1MG/1ML INJ ONE (11:57)
[2021-10-20] MEDS ORDERED: BUPIVACAINE HCL 0.5% INJ 30 ML VIAL INJ ONE (12:10)
[2021-10-20] MEDS ORDERED: PIPERACILLIN/TAZOBACTAM 3.375 GM VIAL ONE (12:42)
[2021-10-20] MEDS ORDERED: SODIUM CHLORIDE 0.9% 50ML 50 ML ONE (12:42)
[2021-10-20] MEDS ORDERED: LIDOCAINE HCL 2% LOCAL INJ 5 ML SDV VIAL INJ ONE (13:01)
[2021-10-20] MEDS ORDERED: ONDANSETRON HCL INJ 2MG/ML 2ML 2 MG/ML VIAL ONE ×2 (13:01→14:24)
[2021-10-20] MEDS ORDERED: DEXAMETHASONE SOD PHOS INJ 4 MG/ML SDV ONE (13:01)
[2021-10-20] MEDS ORDERED: ROCURONIUM BROMIDE 10 MG/ML 5ML VIAL IV ONE (13:01)
[2021-10-20] MEDS ORDERED: SEVOFLURANE INHAL SOLN 250 ML PEN BTL ONE (13:01)
[2021-10-20] MEDS ORDERED: PROPOFOL IV EMULSION 10 MG/ML 20 ML VIAL ONE (13:01)
[2021-10-20] MEDS ORDERED: POVIDONE IODINE 0.05% 0.05 % ML PO ONE (13:01)
[2021-10-20] MEDS ORDERED: FENTANYL CITRATE/PF 100MCG/2 ML INJ ONE ×2 (13:16→14:39)
[2021-10-20] MEDS ORDERED: MIDAZOLAM HCL 2 MG/2 ML VIAL ONE (13:16)
[2021-10-20] MEDS ORDERED: KETAMINE HCL INJ 50 MG/ML 10 ML VIAL ONE (13:16)
[2021-10-20] MEDS ORDERED: NALOXONE HCL INJ 0.4 MG/ML AMP IV PRN (13:45)
[2021-10-20] MEDS ORDERED: KETOROLAC TROMETHAMINE 30 MG/ML VIAL IV PRN (13:45)
[2021-10-20] MEDS ORDERED: SODIUM CHLORIDE 0.9% 1000ML 1,000 ML IV SCH (13:45)
[2021-10-20] MEDS ORDERED: DIPHENHYDRAMINE HCL INJ 50 MG/ML VIAL IM PRN (13:45)
[2021-10-20] MEDS ORDERED: ONDANSETRON HCL INJ 2MG/ML 2ML 2 MG/ML VIAL IV PRN (13:45)
[2021-10-20] MEDS ORDERED: METOCLOPRAMIDE HCL 10 MG/2ML VIAL ONE (14:28)
[2021-10-20] MEDS ORDERED: MORPHINE SULFATE 1 MG/ML 30ML PCA ONE (15:01)
[2021-10-20] MEDS: DEXTROSE 5%/0.9% SOD CHL 1,000 ML IV SCH (15:30)
[2021-10-20] MEDS: ENOXAPARIN SOD INJ 40 MG/0.4 ML SYR SC SCH (15:33)
[2021-10-20 17:09] LABS: FERRITIN 298.43 ng/mL (4.63-204.00)
[2021-10-20] MEDS ORDERED: ACETAMINOPHEN 1000 MG/100 ML IV PRN (18:00)
[2021-10-20] MEDS: MORPHINE SULFATE 1 MG/ML 30ML PCA IV PRN (23:45)
[2021-10-21] VITALS (8 sets, daily range): BP systolic 98–115; BP diastolic 68–78
[2021-10-21] MEDS: PIPERACILLIN/TAZOBACTAM 3.375 GM in SODIUM CHLORIDE 0.9% 50ML 50 ML IV SCH ×3 (00:05→12:51)
[2021-10-21] MEDS: DEXTROSE 5%/0.9% SOD CHL 1,000 ML IV SCH ×3 (00:05→14:15)
[2021-10-21] MEDS: FUROSEMIDE 40 MG TAB PO SCH ×2 (06:00→17:25)
[2021-10-21] MEDS: DICYCLOMINE HCL 10 MG CAP PO SCH ×4 (06:00→17:25)
[2021-10-21 08:23] LABS: BASOPHILS % 0.2 % (0.0-1.0); EOSINOPHILS % 0.1 % (0.0-6.0); HEMATOCRIT 30.2 % (34.2-44.1); HEMOGLOBIN 9.6 g/dL (12.0-16.0); LYMPHOCYTES # (AUTO) 2.5 (1.0-3.2); LYMPHOCYTES % 15.3 % (18.0-39.1); MEAN CORPUSCULAR HEMOGLOBIN 31.3 pg (28-32); MEAN CORPUSCULAR HGB CONC 31.8 g/dL (31-35); MEAN CORPUSCULAR VOLUME 98.4 fL (81-99); MONOCYTES # (AUTO) 1.9 (0.2-0.8); MONOCYTES % 11.5 % (4.4-11.3); NEUTROPHILS # (AUTO) 11.6 (2.1-6.9); NEUTROPHILS % 72.1 % (38.7-80.0); PLATELET COUNT 417 x10e3/uL (140-360); RED BLOOD COUNT 3.07 x10e6/uL (3.6-5.1); RED CELL DISTRIBUTION WIDTH 13.7 % (11.7-14.4)
[2021-10-21 08:47] LABS: ANION GAP 14.1 mmol/L (8-16); BLOOD UREA NITROGEN < 5 mg/dL (7-26); CALCIUM 8.1 mg/dL (8.4-10.2); CARBON DIOXIDE 23 mmol/L (22-29); CHLORIDE 103 mmol/L (98-107); CREATININE, SERUM 0.51 mg/dL (0.57-1.11); EST GLOMERULAR FILTRATION RATE 127 ML/MIN (60-); GLUCOSE 161 mg/dL (74-118); POTASSIUM 4.1 mmol/L (3.5-5.1); SODIUM 136 mmol/L (136-145)
[2021-10-21 08:49] LABS: BUN/CREATININE RATIO 10 (6-25)
[2021-10-21] MEDS: SPIRONOLACTONE 25 MG TAB PO SCH ×2 (08:52→17:24)
[2021-10-21] MEDS: THIAMINE HCL INJ 100 MG/ML 2ML VIAL IV SCH (08:52)
[2021-10-21] MEDS: MULTIVITAMINS/MINERALS TAB PO SCH (08:53)
[2021-10-21] MEDS: METOPROLOL TARTRATE 25 MG TAB PO SCH ×2 (08:53→21:30)
[2021-10-21] MEDS: IRON SUCROSE 100 MG in SODIUM CHLORIDE 0.9% 100 ML 100 ML IV SCH (12:06)
[2021-10-21] MEDS: ENOXAPARIN SOD INJ 40 MG/0.4 ML SYR SC SCH (17:24)
[2021-10-21] MEDS: MORPHINE SULFATE 1 MG/ML 30ML PCA IV PRN (22:35)
[2021-10-22] VITALS (8 sets, daily range): BP systolic 104–117; BP diastolic 73–79
[2021-10-22] MEDS: DICYCLOMINE HCL 10 MG CAP PO SCH ×5 (00:07→23:41)
[2021-10-22] MEDS: PIPERACILLIN/TAZOBACTAM 3.375 GM in SODIUM CHLORIDE 0.9% 50ML 50 ML IV SCH ×5 (03:00→23:41)
[2021-10-22] MEDS: METRONIDAZOLE 500 MG TAB PO SCH ×5 (03:00→23:41)
[2021-10-22] MEDS: FUROSEMIDE 40 MG TAB PO SCH ×2 (06:12→17:38)
[2021-10-22 07:38] LABS: BASOPHILS # (AUTO) 0.1 (0.0-0.1); BASOPHILS % 0.4 % (0.0-1.0); EOSINOPHILS # (AUTO) 0.2 (0.0-0.4); EOSINOPHILS % 1.5 % (0.0-6.0); HEMATOCRIT 27.2 % (34.2-44.1); HEMOGLOBIN 8.4 g/dL (12.0-16.0); LYMPHOCYTES # (AUTO) 2.9 (1.0-3.2); LYMPHOCYTES % 23.9 % (18.0-39.1); MEAN CORPUSCULAR HGB CONC 30.9 g/dL (31-35); MEAN CORPUSCULAR VOLUME 100.4 fL (81-99); MONOCYTES # (AUTO) 1.2 (0.2-0.8); NEUTROPHILS # (AUTO) 7.8 (2.1-6.9); NEUTROPHILS % 63.6 % (38.7-80.0); PLATELET COUNT 359 x10e3/uL (140-360); RED BLOOD COUNT 2.71 x10e6/uL (3.6-5.1); RED CELL DISTRIBUTION WIDTH 13.7 % (11.7-14.4)
[2021-10-22 07:57] LABS: ALANINE AMINOTRANSFERASE 24 IU/L (0-55); ALBUMIN 1.9 g/dL (3.5-5.0); ALBUMIN/GLOBULIN RATIO 0.5 (0.8-2.0); ALKALINE PHOSPHATASE 96 IU/L (40-150); ANION GAP 11.8 mmol/L (8-16); BLOOD UREA NITROGEN < 5 mg/dL (7-26); CALCIUM 8.1 mg/dL (8.4-10.2); CARBON DIOXIDE 25 mmol/L (22-29); CHLORIDE 98 mmol/L (98-107); GLUCOSE 108 mg/dL (74-118); POTASSIUM 3.8 mmol/L (3.5-5.1); SODIUM 131 mmol/L (136-145)
[2021-10-22 08:13] LABS: CREATININE, SERUM 0.48 mg/dL (0.57-1.11); EST GLOMERULAR FILTRATION RATE 136 ML/MIN (60-)
[2021-10-22 08:15] LABS: BUN/CREATININE RATIO 10 (6-25)
[2021-10-22] MEDS: SPIRONOLACTONE 25 MG TAB PO SCH ×2 (09:07→17:38)
[2021-10-22] MEDS: METOPROLOL TARTRATE 25 MG TAB PO SCH ×2 (09:07→21:08)
[2021-10-22] MEDS: THIAMINE HCL INJ 100 MG/ML 2ML VIAL IV SCH (09:07)
[2021-10-22] MEDS: MULTIVITAMINS/MINERALS TAB PO SCH (09:08)
[2021-10-22] MEDS: IRON SUCROSE 100 MG in SODIUM CHLORIDE 0.9% 100 ML 100 ML IV SCH (12:13)
[2021-10-22] MEDS ORDERED: Morphine 2mg Syringe 2 MG/ML SYR IV PRN (13:15)
[2021-10-22] MEDS: ENOXAPARIN SOD INJ 40 MG/0.4 ML SYR SC SCH (17:38)
[2021-10-22] MEDS: HYDROCODONE/APAP 5MG-325MG TAB PO PRN (18:29)
[2021-10-23] VITALS (8 sets, daily range): BP systolic 115–131; BP diastolic 66–85
[2021-10-23] MEDS: HYDROCODONE/APAP 5MG-325MG TAB PO PRN ×5 (00:30→22:05)
[2021-10-23] MEDS: PIPERACILLIN/TAZOBACTAM 3.375 GM in SODIUM CHLORIDE 0.9% 50ML 50 ML IV SCH ×3 (05:09→17:22)
[2021-10-23] MEDS: METRONIDAZOLE 500 MG TAB PO SCH ×3 (05:09→17:22)
[2021-10-23] MEDS: DICYCLOMINE HCL 10 MG CAP PO SCH ×3 (05:09→17:22)
[2021-10-23] MEDS: FUROSEMIDE 40 MG TAB PO SCH ×2 (05:09→17:22)
[2021-10-23] MEDS ORDERED: GADOBENATE DIMEGLUMINE 0 ML IV ONE (08:54)
[2021-10-23] MEDS ORDERED: SODIUM CHLORIDE 0.9% 50ML 0 ML ONE (08:54)
[2021-10-23] MEDS: THIAMINE HCL INJ 100 MG/ML 2ML VIAL IV SCH (09:25)
[2021-10-23] MEDS: METOPROLOL TARTRATE 25 MG TAB PO SCH ×2 (09:25→21:50)
[2021-10-23] MEDS: SPIRONOLACTONE 25 MG TAB PO SCH ×2 (09:25→16:46)
[2021-10-23] MEDS: MULTIVITAMINS/MINERALS TAB PO SCH (09:25)
[2021-10-23] MEDS: IRON SUCROSE 100 MG in SODIUM CHLORIDE 0.9% 100 ML 100 ML IV SCH (11:59)
[2021-10-23] MEDS: ENOXAPARIN SOD INJ 40 MG/0.4 ML SYR SC SCH (16:46)
[2021-10-24] VITALS: BP 116/76
[2021-10-24] MEDS: PIPERACILLIN/TAZOBACTAM 3.375 GM in SODIUM CHLORIDE 0.9% 50ML 50 ML IV SCH ×3 (00:45→12:43)
[2021-10-24] MEDS: METRONIDAZOLE 500 MG TAB PO SCH ×3 (00:45→12:43)
[2021-10-24] MEDS: DICYCLOMINE HCL 10 MG CAP PO SCH ×3 (00:45→12:43)
[2021-10-24] MEDS: HYDROCODONE/APAP 5MG-325MG TAB PO PRN ×3 (02:05→11:18)
[2021-10-24 04:00] VITALS: BP 122/79
[2021-10-24] MEDS: FUROSEMIDE 40 MG TAB PO SCH (06:18)
[2021-10-24 06:19] LABS: BASOPHILS % 0.3 % (0.0-1.0); EOSINOPHILS # (AUTO) 0.1 (0.0-0.4); HEMATOCRIT 28.6 % (34.2-44.1); LYMPHOCYTES % 25.2 % (18.0-39.1); MEAN CORPUSCULAR HEMOGLOBIN 30.7 pg (28-32); MEAN CORPUSCULAR HGB CONC 31.5 g/dL (31-35); MEAN CORPUSCULAR VOLUME 97.6 fL (81-99); MONOCYTES # (AUTO) 0.9 (0.2-0.8); MONOCYTES % 10.9 % (4.4-11.3); NEUTROPHILS % 62.1 % (38.7-80.0); PLATELET COUNT 350 x10e3/uL (140-360); RED BLOOD COUNT 2.93 x10e6/uL (3.6-5.1); RED CELL DISTRIBUTION WIDTH 14.1 % (11.7-14.4)
[2021-10-24 06:41] LABS: ALANINE AMINOTRANSFERASE 18 IU/L (0-55); ALBUMIN 1.9 g/dL (3.5-5.0); ALBUMIN/GLOBULIN RATIO 0.5 (0.8-2.0); ALKALINE PHOSPHATASE 85 IU/L (40-150); ANION GAP 14.8 mmol/L (8-16); BLOOD UREA NITROGEN < 5 mg/dL (7-26); CALCIUM 7.7 mg/dL (8.4-10.2); CARBON DIOXIDE 29 mmol/L (22-29); CHLORIDE 95 mmol/L (98-107); EST GLOMERULAR FILTRATION RATE 130 ML/MIN (60-); GLUCOSE 102 mg/dL (74-118); SODIUM 136 mmol/L (136-145)
[2021-10-24 07:09] LABS: BUN/CREATININE RATIO 10 (6-25); POTASSIUM 2.8 mmol/L (3.5-5.1)
[2021-10-24] MEDS ORDERED: POTASSIUM CHL 40 MEQ in SODIUM CHLORIDE 0.9% 250ML 230 ML IV ONE (07:30)
[2021-10-24] MEDS ORDERED: POTASSIUM CHLORIDE 10MEQ/100ML 400 ML IV ONE (08:00)
[2021-10-24] MEDS ORDERED: POTASSIUM CHLORIDE 10MEQ EA PO ONE (08:00)
[2021-10-24 08:22] VITALS: BP 122/79
[2021-10-24 08:31] VITALS: BP 125/71
[2021-10-24] MEDS: THIAMINE HCL INJ 100 MG/ML 2ML VIAL IV SCH (08:32)
[2021-10-24] MEDS: SPIRONOLACTONE 25 MG TAB PO SCH (08:32)
[2021-10-24] MEDS: MULTIVITAMINS/MINERALS TAB PO SCH (08:33)
[2021-10-24] MEDS: METOPROLOL TARTRATE 25 MG TAB PO SCH (08:33)
[2021-10-24 12:16] VITALS: BP 124/74
[2021-10-24] MEDS: IRON SUCROSE 100 MG in SODIUM CHLORIDE 0.9% 100 ML 100 ML IV SCH (12:43)
[2021-10-24] MEDS ORDERED: PANTOPRAZOLE SOD 40 MG TABEC PO SCH (16:30)
== END 2021-10-24 15:00 | disposition home or self-care (01) | DRG 329 ==
LOC: ER 15:28 → ERHOLD 18:15 → ICU 23:40 → MED/SURG3 10-09 14:20
PROVIDERS: ADMIT Internal Medicine; ATTEND Internal Medicine
PROC: 0W9G3ZZ Drainage of Peritoneal Cavity, Percutaneous Approach (ICD-10-PCS; 2021-10-06)
PROC: 0W9G3ZZ Drainage of Peritoneal Cavity, Percutaneous Approach (ICD-10-PCS; 2021-10-11)
PROC: 0W9G3ZZ Drainage of Peritoneal Cavity, Percutaneous Approach (ICD-10-PCS; 2021-10-20)
PROC: 0DTN0ZZ Resection of Sigmoid Colon, Open Approach (ICD-10-PCS; principal; 2021-10-20 12:00)
DX: K57.20 Diverticulitis of large intestine with perforation and abscess without bleeding (principal); K65.2 Spontaneous bacterial peritonitis; G93.41 Metabolic encephalopathy; I21.4 Non-ST elevation (NSTEMI) myocardial infarction; E87.2 Acidosis; E87.3 Alkalosis; F10.288 Alcohol dependence with other alcohol-induced disorder; K76.6 Portal hypertension; F10.231 Alcohol dependence with withdrawal delirium; K56.609 Unspecified intestinal obstruction, unspecified as to partial versus complete obstruction; E44.1 Mild protein-calorie malnutrition; M62.82 Rhabdomyolysis; N39.0 Urinary tract infection, site not specified; K70.31 Alcoholic cirrhosis of liver with ascites; K52.89 Other specified noninfective gastroenteritis and colitis; F17.210 Nicotine dependence, cigarettes, uncomplicated; N70.11 Chronic salpingitis; Z68.25 Body mass index [BMI] 25.0-25.9, adult; E66.9 Obesity, unspecified; K70.11 Alcoholic hepatitis with ascites; R97.0 Elevated carcinoembryonic antigen [CEA]; Z20.822 Contact with and (suspected) exposure to COVID-19
CPT/HCPCS: 36415; 36600; 49083; 71045; 74018; 74177; 74470; 76705; 76830; 76856; 80048; 80053; 80076; 80307; 80329; 81001; 81025; 82040; 82105; 82150; 82550; 82553; 82607; 82728; 82746; 82805; 82948; 83036; 83540; 83605; 83690; 83735; 83930; 84100; 84132; 84157; 84436; 84443; 84466; 84478; 84479; 84484; 85014; 85018; 85025; 85045; 85610; 86304; 87040; 87070; 87071; 87075; 87086; 87116; 87186; 87205; 87206; 87390; 88112; 88305; 88307; 89051; 93005; 93976; 94799; 96360; 96361; 99285; C1729; G0433; G0435; J0696; J1100; J1170; J1650; J1756; J1817; J2001; J2060; J2250; J2270; J2405; J2543; J2765; J3010; J3411; J3480; J7030; J7042; J7050; J7121; Q9967; U0002

== ENCOUNTER 2022-01-10 15:36 | Inpatient (IN) | payer OTHER ==
[~2022-01-10] VITALS: Ht 170.2 cm; Wt 73.5 kg
[2022-01-10 16:50] LABS: BASOPHILS % 0.2 % (0.0-1.0); EOSINOPHILS % 0.4 % (0.0-6.0); HEMATOCRIT 41.6 % (34.2-44.1); HEMOGLOBIN 14.4 g/dL (12.0-16.0); LYMPHOCYTES # (AUTO) 1.1 (1.0-3.2); LYMPHOCYTES % 24.2 % (18.0-39.1); MEAN CORPUSCULAR HEMOGLOBIN 31.9 pg (28-32); MEAN CORPUSCULAR HGB CONC 34.6 g/dL (31-35); MEAN CORPUSCULAR VOLUME 92.2 fL (81-99); MONOCYTES # (AUTO) 0.4 (0.2-0.8); MONOCYTES % 8.1 % (4.4-11.3); NEUTROPHILS # (AUTO) 3.2 (2.1-6.9); NEUTROPHILS % 66.9 % (38.7-80.0); PLATELET COUNT 84 x10e3/uL (140-360); RED BLOOD COUNT 4.51 x10e6/uL (3.6-5.1); RED CELL DISTRIBUTION WIDTH 15.7 % (11.7-14.4)
[2022-01-10 17:12] LABS: ALBUMIN 3.6 g/dL (3.5-5.0); ALBUMIN/GLOBULIN RATIO 0.8 (0.8-2.0); ANION GAP 19.9 mmol/L (8-16); CALCIUM 8.9 mg/dL (8.4-10.2); CREATININE, SERUM 0.7 mg/dL (0.57-1.11)
[2022-01-10 17:17] LABS: POTASSIUM 2.9 mmol/L (3.5-5.1)
[2022-01-10] MEDS ORDERED: POTASSIUM CHLORIDE 20 MEQ TAB CR PO STA (17:18)
[2022-01-10] MEDS ORDERED: SODIUM CHLORIDE 0.9% 1000ML 1,000 ML IV ONE (17:30)
[2022-01-10] MEDS ORDERED: ONDANSETRON HCL INJ 2MG/ML 2ML 2 MG/ML VIAL IV PRN (19:45)
[2022-01-10 20:45] VITALS: BP 100/86
[2022-01-10 21:35] VITALS: BP 100/86
[2022-01-10 22:55] VITALS: BP 100/86
[2022-01-11] VITALS (8 sets, daily range): BP systolic 99–114; BP diastolic 72–80
[2022-01-11] MEDS: HYDROCODONE/APAP 5MG-325MG TAB PO PRN ×4 (00:05→22:21)
[2022-01-11 05:56] LABS: BASOPHILS % 0.6 % (0.0-1.0); EOSINOPHILS # (AUTO) 0.1 (0.0-0.4); EOSINOPHILS % 1.7 % (0.0-6.0); HEMATOCRIT 37.1 % (34.2-44.1); HEMOGLOBIN 12.6 g/dL (12.0-16.0); LYMPHOCYTES # (AUTO) 1.7 (1.0-3.2); LYMPHOCYTES % 49.3 % (18.0-39.1); MEAN CORPUSCULAR HEMOGLOBIN 31.6 pg (28-32); MONOCYTES # (AUTO) 0.3 (0.2-0.8); MONOCYTES % 8.9 % (4.4-11.3); NEUTROPHILS # (AUTO) 1.4 (2.1-6.9); NEUTROPHILS % 39.2 % (38.7-80.0); PLATELET COUNT 63 x10e3/uL (140-360); RED BLOOD COUNT 3.99 x10e6/uL (3.6-5.1); RED CELL DISTRIBUTION WIDTH 15.4 % (11.7-14.4)
[2022-01-11 06:10] LABS: INR 1.43; PROTHROMBIN TIME 18.6 seconds (11.9-14.5)
[2022-01-11 06:11] LABS: PARTIAL THROMBOPLASTIN TIME 31.4 seconds (23.8-35.5)
[2022-01-11 06:24] LABS: ALANINE AMINOTRANSFERASE 31 IU/L (0-55); ALBUMIN 2.9 g/dL (3.5-5.0); ALBUMIN/GLOBULIN RATIO 0.8 (0.8-2.0); ALKALINE PHOSPHATASE 120 IU/L (40-150); ANION GAP 13.7 mmol/L (8-16); BLOOD UREA NITROGEN < 5 mg/dL (7-26); CALCIUM 8.4 mg/dL (8.4-10.2); CARBON DIOXIDE 30 mmol/L (22-29); CHLORIDE 96 mmol/L (98-107); CREATININE, SERUM 0.54 mg/dL (0.57-1.11); EST GLOMERULAR FILTRATION RATE 119 ML/MIN (60-); GLUCOSE 91 mg/dL (74-118); SODIUM 137 mmol/L (136-145)
[2022-01-11 06:34] LABS: BUN/CREATININE RATIO 9 (6-25)
[2022-01-11 06:35] LABS: MAGNESIUM 1.1 MG/DL (1.3-2.1); POTASSIUM 2.7 mmol/L (3.5-5.1)
[2022-01-11] MEDS ORDERED: MAGNESIUM SULFATE 2GM/50ML 50 ML IV ONE ×2 (07:00→11:00)
[2022-01-11] MEDS ORDERED: POTASSIUM CHLORIDE 10MEQ EA PO ONE ×2 (07:20→09:00)
[2022-01-11] MEDS: PANTOPRAZOLE SOD 40 MG TABEC PO SCH (07:24)
[2022-01-11] MEDS: DOCUSATE SODIUM 100 MG CAP PO SCH (08:34)
[2022-01-11] MEDS: SENNOSIDES 8.6 MG TAB PO SCH (08:34)
[2022-01-11 15:00] LABS: BODY FLUID APPEARANCE CLOUDY; BODY FLUID COLOR YELLOW; BODY FLUID TYPE PERITONEAL
[2022-01-11 15:01] LABS: RBC,BODY FLUID 1000 cells/uL; WBC,BODY FLUID 262 cells/uL
[2022-01-11 15:19] LABS: ANION GAP 15.1 mmol/L (8-16); BLOOD UREA NITROGEN < 5 mg/dL (7-26); CALCIUM 8.7 mg/dL (8.4-10.2); CARBON DIOXIDE 26 mmol/L (22-29); CHLORIDE 99 mmol/L (98-107); CREATININE, SERUM 0.57 mg/dL (0.57-1.11); EST GLOMERULAR FILTRATION RATE 112 ML/MIN (60-); GLUCOSE 100 mg/dL (74-118); MAGNESIUM 2.2 MG/DL (1.3-2.1); POTASSIUM 4.1 mmol/L (3.5-5.1); SODIUM 136 mmol/L (136-145)
[2022-01-11 15:20] LABS: BUN/CREATININE RATIO 9 (6-25)
[2022-01-11 16:29] LABS: LYMPHOCYTES,BODY FLUID 18 %; MONO/MACROPHG,BODY FLUID 19 %; NEUTROPHILS,BODY FLUID 3 %; OTHER CELLS,BODY FLUID 60 %
[2022-01-12 00:45] VITALS: BP 109/76
[2022-01-12 05:08] VITALS: BP 114/79
[2022-01-12 07:41] LABS: BASOPHILS % 0.6 % (0.0-1.0); EOSINOPHILS # (AUTO) 0.1 (0.0-0.4); EOSINOPHILS % 1.5 % (0.0-6.0); HEMATOCRIT 39.6 % (34.2-44.1); LYMPHOCYTES # (AUTO) 1.6 (1.0-3.2); LYMPHOCYTES % 50.5 % (18.0-39.1); MEAN CORPUSCULAR HEMOGLOBIN 31.6 pg (28-32); MEAN CORPUSCULAR HGB CONC 32.8 g/dL (31-35); MEAN CORPUSCULAR VOLUME 96.4 fL (81-99); MONOCYTES # (AUTO) 0.3 (0.2-0.8); MONOCYTES % 8.9 % (4.4-11.3); NEUTROPHILS # (AUTO) 1.3 (2.1-6.9); NEUTROPHILS % 38.5 % (38.7-80.0); PLATELET COUNT 68 x10e3/uL (140-360); RED BLOOD COUNT 4.11 x10e6/uL (3.6-5.1); RED CELL DISTRIBUTION WIDTH 15.3 % (11.7-14.4)
[2022-01-12 08:00] VITALS: BP 121/79
[2022-01-12 08:21] LABS: ALANINE AMINOTRANSFERASE 31 IU/L (0-55); ALBUMIN 3.1 g/dL (3.5-5.0); ALBUMIN/GLOBULIN RATIO 0.8 (0.8-2.0); ALKALINE PHOSPHATASE 121 IU/L (40-150); BLOOD UREA NITROGEN < 5 mg/dL (7-26); CALCIUM 8.9 mg/dL (8.4-10.2); CARBON DIOXIDE 27 mmol/L (22-29); CHLORIDE 100 mmol/L (98-107); CREATINE KINASE 219 IU/L (29-168); CREATININE, SERUM 0.57 mg/dL (0.57-1.11); EST GLOMERULAR FILTRATION RATE 112 ML/MIN (60-); GLUCOSE 108 mg/dL (74-118); SODIUM 136 mmol/L (136-145)
[2022-01-12 08:23] LABS: BUN/CREATININE RATIO 9 (6-25)
[2022-01-12] MEDS: PANTOPRAZOLE SOD 40 MG TABEC PO SCH (08:38)
[2022-01-12] MEDS: HYDROCODONE/APAP 5MG-325MG TAB PO PRN (08:39)
[2022-01-12] MEDS: DOCUSATE SODIUM 100 MG CAP PO SCH (08:39)
[2022-01-12] MEDS: SENNOSIDES 8.6 MG TAB PO SCH (08:39)
[2022-01-12] MEDS ORDERED: PROTONIX40 MG/ML PO (09:31)
[2022-01-12] MEDS ORDERED: LASIX40 MG PO (09:31)
[2022-01-12] MEDS ORDERED: POTASSIUM CHLO20 ME1 PO (09:31)
[2022-01-12 11:54] VITALS: BP 117/80
== END 2022-01-12 11:58 | disposition home or self-care (01) | DRG 433 ==
LOC: ER 17:30 → ERHOLD 19:37 → MED/SURG3 20:28 → UNDODISIN 01-12 10:40
PROVIDERS: ADMIT Internal Medicine; ATTEND Internal Medicine
PROC: 0W9G3ZZ Drainage of Peritoneal Cavity, Percutaneous Approach (ICD-10-PCS; principal; 2022-01-11)
DX: K70.30 Alcoholic cirrhosis of liver without ascites (principal); E87.1 Hypo-osmolality and hyponatremia; R53.1 Weakness; R79.89 Other specified abnormal findings of blood chemistry; E83.42 Hypomagnesemia; E87.6 Hypokalemia; M77.31 Calcaneal spur, right foot; Z20.822 Contact with and (suspected) exposure to COVID-19; W18.39XA Other fall on same level, initial encounter; F10.21 Alcohol dependence, in remission; Z98.0 Intestinal bypass and anastomosis status; Z91.19 Patient's noncompliance with other medical treatment and regimen; Z90.49 Acquired absence of other specified parts of digestive tract; Z91.018 Allergy to other foods; Z72.0 Tobacco use
CPT/HCPCS: 36415; 49083; 70450; 71045; 72110; 72148; 74470; 80048; 80053; 82040; 82105; 82378; 82550; 83036; 83735; 85025; 85610; 85730; 86141; 86704; 88112; 88305; 89051; 94799; 97139; 99284; C1729; J3475; J7030; U0002

== ENCOUNTER 2023-08-21 19:52 | Emergency (ER) | payer SELFPAY ==
[~2023-08-21] VITALS: Ht 167.6 cm; Wt 68.5 kg
[~2023-08-21 19:52] MED LIST: CEFUROXIME250 MG PO; CHLORDIAZEPOXIDE5 MG PO; FUROSEMIDE40 MG PO; LASIX40 MG PO; ONDANSETRON ODT4 MG PO; PANTOPRAZOLE SO40 MG PO; POTASSIUM CHLO20 ME1 PO; PROTONIX40 MG/ML PO
[2023-08-21] MEDS ORDERED: CEFDINIR300 MG PO (20:10)
[2023-08-21 20:50] VITALS: BP 124/87; PULSE 100; RESP 17; TEMP 98.4; O2SAT 100
== END 2023-08-21 20:53 | disposition home or self-care (01) ==
LOC: ER 19:58
DX: Z46.6 Encounter for fitting and adjustment of urinary device (principal); N39.0 Urinary tract infection, site not specified; R50.9 Fever, unspecified; K76.9 Liver disease, unspecified; F41.9 Anxiety disorder, unspecified; Z87.19 Personal history of other diseases of the digestive system
CPT/HCPCS: 87086; 99283